=== PATIENT | male | born 1965 | race Two or more races ===

== ENCOUNTER 2018-04-24 20:50 | Emergency (ER) | payer OTHER ==
[2018-04-24] MEDS: HYDROCODONE/APAP (10/325) TAB PO (22:54)
[2018-04-24] MEDS: CYCLOBENZAPRINE 10 MG TAB PO (22:54)
[2018-04-24 23:14] LABS: URINE BLOOD (Dip) POC Trace-lysed (NEGATIVE); URINE GLUCOSE (Dip) POC Negative (NEGATIVE); URINE KETONES (Dip) POC Negative (NEGATIVE); URINE LEUKOCYTE EST (Dip) POC Negative (NEGATIVE); URINE NITRITE (Dip) POC Negative (NEGATIVE); URINE TOTAL PROTEIN POC Negative (NEGATIVE)
[2018-04-24 23:14] LABS: URINE PH (Dip) POC 6.5 (5.0-8.5)
== END 2018-04-24 23:26 | disposition home or self-care (01) ==
LOC: FTE 20:50
DX: S39.012A Strain of muscle, fascia and tendon of lower back, initial encounter (principal); S16.1XXA Strain of muscle, fascia and tendon at neck level, initial encounter; S00.03XA Contusion of scalp, initial encounter; V49.49XA Driver injured in collision with other motor vehicles in traffic accident, initial encounter
CPT/HCPCS: 81003; 99283